=== PATIENT | male | born 1940 | race African-American/Black ===

== ENCOUNTER 2016-12-08 14:56 | Emergency (ER) | payer OTHER ==
[~2016-12-08] VITALS: Ht 170.2 cm; Wt 88.5 kg
--- NOTE | ~2016-12-08 | EKG ---
[facility] [place] [address] ELECTROCARDIOGRAM REPORT Name: DONTAE GUEVARA Room #: DEP Huma#: [id number] Admission: 12/08/16 Attend Phys: Discharge: 12/08/16 Date of : 44 Report #: [id number] THIS REPORT FOR: //name// [facility] ED Test Date: 2016-12-08 Test Time: 15:16:55 Pat Name: DONTAE GUEVARA Department: Room: Gender: Multimedia Project Manager: MZOOK : 1940 Requested By: Sinan Simpson Order Number: [id number] MD: Doug Barnett Measurements Intervals [place] Rate: 55 P: 37 MO: 171 QRS: -7 QRSD: 92 T: 76 QT: 433 QTc: 415 Interpretive Statements Sinus rhythm RSR' in V1 or V2, right VCD Nonspecific T wave abnormality No previous ECG available for comparison Electronically Signed On 12-09-2016 8:51:41 CDT by Doug Barnett [email or web address] <ELECTRONICALLY SIGNED> By: Doug Barnett MD, [facility] 12/09/16 0851 1516 1516 Doug Barnett MD, FACC /EPI
[2016-12-08 16:03] LABS: HEMATOCRIT 43.3 % (42.0-52.0); HEMOGLOBIN 14.4 gm/dL (14.0-18.0); MCH 27.8 pg (26.0-34.0); MCHC 33.2 g/dL (28.0-37.0); MCV 83.6 fL (80.0-100.0); PLATELET COUNT 210 thou/uL (150-400); RBC 5.17 mil/uL (4.50-6.00); RDW 14.9 % (10.5-14.5); WBC 6.1 thou/uL (4.0-11.0)
[2016-12-08 16:04] LABS: MANUAL DIFF YES
[2016-12-08 16:20] LABS: URINE BILIRUBIN NEGATIVE (Negative); URINE BLOOD TRACE (Negative); URINE COLOR YELLOW; URINE GLUCOSE-RANDOM* NEGATIVE (Negative); URINE KETONES NEGATIVE (Negative); URINE LEUKOCYTES-REFLEX NEGATIVE (Negative); URINE PROTEIN (DIPSTICK) NEGATIVE (Negative); URINE UROBILINOGEN 0.2 E.U./dl (0.2-1.0)
[2016-12-08 16:21] LABS: ANION GAP 10 mmol/L (7-16); BUN 16 mg/dL (7-18); CALCIUM 9.4 mg/dL (8.5-10.1); CHLORIDE 100 mmol/L (98-107); CO2 26 mmol/L (21-32); CREATININE 1.5 mg/dL (0.7-1.3); GLUCOSE 96 mg/dL (74-106); POTASSIUM 3.7 mmol/L (3.5-5.1); SODIUM 136 mmol/L (136-145)
[2016-12-08 16:35] LABS: ALBUMIN 3.5 g/dL (3.4-5.0); ALKALINE PHOSPHATASE 87 U/L (46-116); CK-MB MASS 1.4 ng/mL (<0.5-3.6); MAGNESIUM 1.8 mg/dL (1.8-2.4); NT-PRO BRAIN NAT PEPTIDE 40 pg/mL (<300); SGOT 24 U/L (15-37); SGPT 31 U/L (30-65); TOTAL BILIRUBIN 0.4 mg/dL (<0.1-1.0); TOTAL PROTEIN 7.6 g/dL (6.4-8.2); TROPONIN-I < 0.04 ng/mL (<0.04-0.07)
[2016-12-08 16:48] LABS: ABSOLUTE NEUTROPHILS 3.9 thou/uL (1.4-8.2); TOTAL CELL COUNT 100
[2016-12-08 19:16] VITALS: BP 124/61
== END 2016-12-08 19:18 | disposition home or self-care (01) ==
LOC: ER 14:56
PROVIDERS: Emergency Medicine
DX: R55 Syncope and collapse (principal); K59.00 Constipation, unspecified; I10 Essential (primary) hypertension; E78.00 Pure hypercholesterolemia, unspecified; Z95.5 Presence of coronary angioplasty implant and graft; Z88.8 Allergy status to other drugs, medicaments and biological substances; Z91.041 Radiographic dye allergy status; Z87.891 Personal history of nicotine dependence

== ENCOUNTER 2021-03-06 00:33 | Inpatient (IN) | payer OTHER ==
[~2021-03-06] VITALS: Ht 167.6 cm; Wt 85.7 kg
[2021-03-06 00:35] VITALS: BP 180/73
[2021-03-06] MEDS ORDERED: D3-200050 MCG PO (00:59)
[2021-03-06] MEDS ORDERED: ASA81BEC PO (00:59)
[2021-03-06] MEDS ORDERED: PLAVIX 75 MG TA75 MG PO (01:01)
[2021-03-06] MEDS ORDERED: CLONIDINE PATCH TOP (01:01)
[2021-03-06] MEDS ORDERED: LOSARTAN POTAS100 MG PO (01:02)
[2021-03-06] MEDS ORDERED: SUPER THERAVIT1 EACH PO (01:02)
[2021-03-06] MEDS ORDERED: PROCARDIA XL90 MG PO (01:02)
[2021-03-06 01:25] LABS: ABSOLUTE NEUTROPHILS 13.1 thou/uL (1.4-8.2); BASOPHILS 0.3 % (0.0-2.0); HEMATOCRIT 41.4 % (42.0-52.0); HEMOGLOBIN 13.8 gm/dL (14.0-18.0); LYMPHOCYTES 4.4 % (24.0-44.0); MCH 28.9 pg (26.0-34.0); MCHC 33.2 g/dL (28.0-37.0); MCV 87.1 fL (80.0-100.0); MONOCYTES 3.8 % (1.0-8.0); PLATELET COUNT 209 thou/uL (150-400); POLYS 91.5 % (36.0-66.0); RBC 4.76 mil/uL (4.50-6.00); WBC 14.3 thou/uL (4.0-11.0)
[2021-03-06 01:29] LABS: CALCIUM 9.4 mg/dL (8.5-10.1); CREATININE 1.2 mg/dL (0.7-1.3); POTASSIUM 4.6 mmol/L (3.5-5.1)
[2021-03-06 01:35] LABS: ALBUMIN 3.7 g/dL (3.4-5.0); TOTAL BILIRUBIN 0.7 mg/dL (0.2-1.0)
[2021-03-06 02:37] LABS: URINE BILIRUBIN NEGATIVE (Negative); URINE BLOOD 1+ (Negative); URINE CLARITY CLEAR; URINE COLOR YELLOW; URINE GLUCOSE-RANDOM* NEGATIVE (Negative); URINE KETONES TRACE (Negative); URINE LEUKOCYTES-REFLEX NEGATIVE (Negative); URINE NITRITE-REFLEX NEGATIVE (Negative); URINE PROTEIN (DIPSTICK) NEGATIVE (Negative); URINE SPECIFIC GRAVITY 1.025 (1.005-1.035); URINE UROBILINOGEN 0.2 E.U./dl (0.2-1.0)
[2021-03-06 03:16] LABS: BACTERIA-REFLEX 1-9 Few /HPF (None Seen); CASTS None Seen /LPF (None Seen); CRYSTALS None Seen /LPF (None Seen); MUCUS 4-6 Moderate strn/LPF (None Seen); SQUAMOUS 0-3 Few /LPF (0-3); URINE RBC 3-10 Few /HPF (NONE SEEN); URINE WBC-REFLEX 0-5 Rare /HPF (0-5)
[2021-03-06 10:41] VITALS: BP 135/62
[2021-03-06 17:48] VITALS: BP 134/68
[2021-03-06 18:40] VITALS: BP 134/68
[2021-03-06 19:08] VITALS: BP 134/68
[2021-03-06 19:30] VITALS: BP 175/85
[2021-03-07 05:28] VITALS: BP 152/78
[2021-03-07 06:15] LABS: HEMATOCRIT 38.2 % (42.0-52.0); HEMOGLOBIN 12.7 gm/dL (14.0-18.0); MCHC 33.3 g/dL (28.0-37.0); MCV 87.1 fL (80.0-100.0); RBC 4.39 mil/uL (4.50-6.00); RDW 15.1 % (10.5-14.5); WBC 12.4 thou/uL (4.0-11.0)
[2021-03-07 06:29] LABS: CALCIUM 8.7 mg/dL (8.5-10.1); CREATININE 1.5 mg/dL (0.7-1.3)
[2021-03-07 07:14] VITALS: BP 154/67
[2021-03-07 15:30] VITALS: BP 147/55
--- NOTE | 2021-03-07 15:49 | NUR ---
INITIAL ASSESSMENT: POWER reviewed chart and spoke with nursing and attending physician. Pt was admitted from home due to colitis. GI consulted. Pt is on IV abx. Per chart, pt has received the Moderna COVID vaccine. Discharge home is anticipated in 1-2 days. SW placed call to pt's room. No answer. Per chart, pt is alert/orientated. Pt lives at home with his . Pt's PCP is Dr. Shey Chou. Plan is for pt to discharge home when medically stable. POWER is following to assist as needed with discharge planning.
[2021-03-07 19:45] VITALS: BP 136/70
[2021-03-08 04:45] VITALS: BP 137/68
[2021-03-08] MEDS ORDERED: CIPRO500 M1 PO (07:32)
[2021-03-08] MEDS ORDERED: FLAGYL500 M1 PO (07:32)
--- NOTE | 2021-03-08 07:53 | NUR ---
PT UP TO BATHROOM WITH SBA. PT STATED HE HAD BM AND IT WAS CLEAR WITH NO BLOOD OR REDNESS. PT ANTICIPATING ON GOING HOME TODAY. VSS OVERNIGHT. PT HAD SOME BOUTS OF PONCHO. FULL LIQUID DIET. HOURLY ROUNDING.
[2021-03-08 08:02] VITALS: BP 153/66
[2021-03-08 14:19] LABS: HEMATOCRIT 34.5 % (42.0-52.0); HEMOGLOBIN 11.4 gm/dL (14.0-18.0); MCH 28.8 pg (26.0-34.0); MCHC 33.2 g/dL (28.0-37.0); MCV 86.8 fL (80.0-100.0); RBC 3.98 mil/uL (4.50-6.00); RDW 15.1 % (10.5-14.5); WBC 9.9 thou/uL (4.0-11.0)
--- NOTE | 2021-03-08 14:31 | NUR ---
DISCHARGE NOTE: SW reviewed chart and spoke with nursing and attending physician. Pt's diet is being advanced. Pt will most likely discharge home later today. SW placed call to pt's room. No answer. No SW discharge needs identified at this time. Pt's family will provide transportation home. SW is available to assist should needs arise.
[2021-03-08 14:34] LABS: CALCIUM 8.1 mg/dL (8.5-10.1); CREATININE 1.5 mg/dL (0.7-1.3); POTASSIUM 3.8 mmol/L (3.5-5.1)
[2021-03-08 14:35] VITALS: BP 153/66
[2021-03-08 14:37] VITALS: BP 153/66
[2021-03-08 15:01] VITALS: BP 153/66
--- NOTE | 2021-03-08 16:02 | NUR ---
DISCHARGE NOTE: PT DISCHARGED AT 1545 VIA 'S CAR TO HOME. NEW PRESCRIPTION INFORMATION GIVEN TO PATIENT. PT SENT WITH PRESCRIPTIONS TO TAKE TO PHARMACY. DISCHARGE EDUCATION PROVIDED AND ENCOURAGED PT TO ATTEND & SCHEDULE FOLLOW UP APPOINTMENTS. IV & TELE MONITOR DISCONTINUED. DENIES ANY QUESTIONS.
== END 2021-03-08 15:48 | disposition home or self-care (01) | DRG 871 ==
LOC: ER 00:33 → EROBS 03:35 → 3W 03:35 → EROBS 08:47 → 3W 19:10
PROVIDERS: Emergency Medicine; Internal Medicine; Nurse Practitioner Family; ADMIT Internal Medicine; ATTEND Internal Medicine
DX: A41.9 Sepsis, unspecified organism (principal); N17.0 Acute kidney failure with tubular necrosis; A09 Infectious gastroenteritis and colitis, unspecified; K92.1 Melena; E78.00 Pure hypercholesterolemia, unspecified; E78.5 Hyperlipidemia, unspecified; I25.10 Atherosclerotic heart disease of native coronary artery without angina pectoris; I10 Essential (primary) hypertension; Z86.718 Personal history of other venous thrombosis and embolism; Z95.5 Presence of coronary angioplasty implant and graft; Z88.8 Allergy status to other drugs, medicaments and biological substances; Z91.041 Radiographic dye allergy status; Z87.891 Personal history of nicotine dependence; Z86.010 Personal history of colon polyps
CPT/HCPCS: 10879

== ENCOUNTER → 2021-04-05 | Outpatient (CLI) | payer OTHER ==
[~2021-04-05] MED LIST: ASA81BEC PO; CATAPRES-TTS 11 EACH TRANSDERM; CIPRO500 M1 PO; CLONIDINE PATCH TOP; D3-200050 MCG PO; FLAGYL500 M1 PO; LIPITOR 40 MG T40 M1 PO; LOSARTAN POTAS100 MG PO; PLAVIX 75 MG TA75 MG PO; PROCARDIA XL90 MG PO; SUPER THERAVIT1 EACH PO
== END ==
LOC: LAB 12:46
PROVIDERS: ATTEND Student in an Organized Health Care Education/Training Program
DX: Z01.812 Encounter for preprocedural laboratory examination (principal); Z20.822 Contact with and (suspected) exposure to COVID-19

== ENCOUNTER → 2021-04-08 | Outpatient (CLI) | payer OTHER ==
[~2021-04-08] VITALS: Ht 167.6 cm; Wt 83.5 kg
--- NOTE | 2021-04-10 18:06 | PATH ---
[facility] [address] [place] [address] PATHOLOGY RPT PROCEDURE Name: DONTAE GUEVARA Room #: REG VIKRAM Terrazas.#: [id number] Admission: 04/08/21 Date of : 44 Discharge: Report #: [id number] Path Case #: [id number] [facility] Accession Number: [id number] . 01 Material submitted: . colon - COLON MASS BIOPSY 65CM FROM ANAL VERGE. Modifiers: 65CM FROM ANAL VERGE . 01 Clinical history: . DTS/COLONOSCOPY/COLITIS COLITIS, COLON STRICTURE 65 CM FROM ANAL VERGE . 02 Diagnosis: Large intestine, "colonic mass 65 cm from anal verge", endoscopic biopsy: - Fragments of ulceration, granulation tissue and background large intestine showing active colitis. - Negative for dysplasia or malignancy. (IUV:terence; 04/10/2021) QMS 04/10/2021 1311 Local . 02 Comment: Examination shows patchy involvement of marked acute inflammation with a few fragments showing ulceration, fibrinopurulent material, as well as underlying granulation tissue without intact surface epithelium. In addition, other fragments show architecturally abnormal glands in a fibrotic lamina propria. Overall findings are suggestive of diverticulitis, chronic active colitis including healing ischemic colitis, as well as medication/drug induced colitis and infectious-type of colitis. There is no epithelial dysplasia or malignancy identified within the sampled fragments. Please correlate clinically. (IUV:terence; 04/10/2021) . 02 Electronically signed: . Lorenza Medley MD, Pathologist NPI- [id number] . 01 Gross description: . The specimen is received in formalin, labeled "Dontae Guevara, colon mass BX 65 cm from anal verge". Received are multiple segments of pale crow tissue ranging in size from 0.3 to 0.5 cm in maximum dimensions. The specimen is submitted entirely in cassette A1.([facility]; 04/09/2021) [facility] 04/09/2021 1056 Local . 02 Pathologist provided ICD-10: K63.3, K52.9 . [address] [address] PATHOLOGY RPT PROCEDURE Name: DONTAE GUEVARA Room #: REG VIKRAM Finn#: [id number] Admission: 04/08/21 Date of : 44 Discharge: Report #: [id number] Path Case #: [id number] Specimen Comment: A courtesy copy of this report has been sent to [phone] Specimen Comment: [phone] Specimen Comment: Report sent to / DR BRAGA Performed at: [address], [place] [id number] MD Gerson Leon MD Phone: [phone] Performed at: [address] [id number] MD Lorenza Medley MD Phone: [phone]
== END | disposition home or self-care (01) ==
LOC: GI
PROVIDERS: ATTEND Internal Medicine Gastroenterology
DX: R93.3 Abnormal findings on diagnostic imaging of other parts of digestive tract (principal); K52.9 Noninfective gastroenteritis and colitis, unspecified; K63.3 Ulcer of intestine; K56.690 Other partial intestinal obstruction; K64.8 Other hemorrhoids; I11.0 Hypertensive heart disease with heart failure; I50.9 Heart failure, unspecified; I25.10 Atherosclerotic heart disease of native coronary artery without angina pectoris; E78.00 Pure hypercholesterolemia, unspecified; E11.9 Type 2 diabetes mellitus without complications; H40.9 Unspecified glaucoma; G47.30 Sleep apnea, unspecified; Z86.010 Personal history of colon polyps; Z98.890 Other specified postprocedural states; Z79.899 Other long term (current) drug therapy; Z87.891 Personal history of nicotine dependence; Z86.718 Personal history of other venous thrombosis and embolism; Z79.01 Long term (current) use of anticoagulants
CPT/HCPCS: 62110; 62900

== ENCOUNTER → 2021-04-29 | Outpatient (CLI) | payer OTHER ==
[2021-04-29 11:33] LABS: CREATININE 1.4 mg/dL (0.7-1.3)
== END ==
LOC: CAT 10:05
PROVIDERS: ATTEND Internal Medicine Gastroenterology
DX: K63.89 Other specified diseases of intestine (principal); N20.0 Calculus of kidney; N28.1 Cyst of kidney, acquired; J84.89 Other specified interstitial pulmonary diseases; M41.86 Other forms of scoliosis, lumbar region; M47.816 Spondylosis without myelopathy or radiculopathy, lumbar region

== ENCOUNTER → 2021-05-09 | Outpatient (CLI) | payer OTHER | LOC: LAB 11:28 | PROVIDERS: ATTEND Student in an Organized Health Care Education/Training Program | DX: Z01.812 Encounter for preprocedural laboratory examination (principal); Z20.822 Contact with and (suspected) exposure to COVID-19 ==

== ENCOUNTER → 2021-05-13 | Outpatient (CLI) | payer OTHER ==
[~2021-05-13] VITALS: Ht 167.6 cm; Wt 82.1 kg
--- NOTE | 2021-05-15 16:06 | PATH ---
[facility] [address] [place] [address] PATHOLOGY RPT PROCEDURE Name: DONTAE GUEVARA Room #: REG VIKRAM Terrazas.#: [id number] Admission: 05/13/21 Date of : 44 Discharge: Report #: [id number] Path Case #: [id number] [facility] Accession Number: [id number] . 01 Material submitted: . PART A: colon - COLONIC STRICTURE BIOPSY PART B: rectum - RECTAL POLYP . 01 Clinical history: . COLONOSCOPY COLONIC MASS . 02 Diagnosis: A. Colonic mucosa, colonic stricture, biopsy: - Colonic mucosa with marked ulceration with fibrinopurulent exudate and extensive granulation tissue and reactive changes present. - There is no evidence of dysplasia or malignancy identified (see comment). . B. Rectal-type mucosa, rectal polyp, biopsy: - Hyperplastic polyp. . (SCA:brittani; 05/15/2021) QLM 05/15/2021 1122 Local . 02 Comment: A. Sections reveal colonic mucosa with marked ulceration with fibrinopurulent exudate and granulation tissue. No dysplasia or malignancy is identified within the sections examined. The lesional tissue of the mass may not have been sampled due to the abundance of inflammation/ulceration and a repeat biopsy or excision is recommended if clinically indicated. . (SCA:mml; 05/15/2021) . 02 Electronically signed: . Rogelio Lerner DO, Pathologist NPI- [id number] . 01 Gross description: . A. The specimen is received in formalin, labeled "Dontae Guevara, colonic stricture BX". Received are 4 segments of pale crow tissue ranging in size from 0.2 to 0.5 cm in maximum dimensions. The specimen is submitted entirely in cassette A1. . B. The specimen is received in formalin, labeled "Dontae Guevara, rectal polyp". Received is a segment of pale crow tissue measuring 0.4 [place] [address] PATHOLOGY RPT PROCEDURE Name: DONTAE GUEVARA [id number]mission: 05/13/21 Date of : 44 Discharge: Report #: [id number] Path Case #: [id number] in maximum dimensions. The specimen is submitted entirely in cassette B1.([facility]; 05/14/2021) [facility] 05/14/2021 1523 Local . 02 Pathologist provided ICD-10: K63.3, K62.1 . 02 CPT . 770165, [id number] Specimen Comment: A courtesy copy of this report has been sent to [phone] Specimen Comment: [phone] Specimen Comment: Report sent to / DR BRAGA Performed at: 01 [facility] [address] [place] [id number] MD Gerson Leon MD Phone: [phone] Performed at: [address] [id number] MD Gonzalo Oleary MD Phone: [phone]
== END | disposition home or self-care (01) ==
LOC: GI 08:17
PROVIDERS: ATTEND Internal Medicine Gastroenterology
DX: K56.699 Other intestinal obstruction unspecified as to partial versus complete obstruction (principal); K63.3 Ulcer of intestine; K62.1 Rectal polyp; K64.8 Other hemorrhoids; I10 Essential (primary) hypertension; I25.10 Atherosclerotic heart disease of native coronary artery without angina pectoris; E78.5 Hyperlipidemia, unspecified; H40.9 Unspecified glaucoma; G47.30 Sleep apnea, unspecified; K21.9 Gastro-esophageal reflux disease without esophagitis; Z98.890 Other specified postprocedural states; Z79.899 Other long term (current) drug therapy; Z87.891 Personal history of nicotine dependence; Z98.41 Cataract extraction status, right eye; Z98.42 Cataract extraction status, left eye; Z91.041 Radiographic dye allergy status; Z88.8 Allergy status to other drugs, medicaments and biological substances
CPT/HCPCS: 62110; 62900